=== PATIENT | male | born 1960 | race Two or more races ===

== ENCOUNTER 2017-02-15 22:59 | Emergency (ER) | payer MEDICAID ==
[2017-02-16] MEDS ORDERED: KETOROLAC 60 MG/2 ML VIAL IM STA (00:02)
[2017-02-16] MEDS ORDERED: KETOROLAC 60 MG/2 ML VIAL ONE (00:05)
== END 2017-02-16 02:08 | disposition home or self-care (01) ==
DX: S16.1XXA Strain of muscle, fascia and tendon at neck level, initial encounter (principal); S20.212A Contusion of left front wall of thorax, initial encounter; S39.012A Strain of muscle, fascia and tendon of lower back, initial encounter; V53.5XXA Driver of pick-up truck or van injured in collision with car, pick-up truck or van in traffic accident, initial encounter; Y92.411 Interstate highway as the place of occurrence of the external cause; F17.200 Nicotine dependence, unspecified, uncomplicated

== ENCOUNTER 2017-11-09 13:41 | Outpatient (CLI) | payer MEDICAID | END 2017-11-09 13:42 | disposition critical access hospital (66) | LOC: EMS 13:41 | PROVIDERS: ATTEND Surgery | DX: R07.9 Chest pain, unspecified (principal); M54.9 Dorsalgia, unspecified | CPT/HCPCS: A0425; A0429 ==

== ENCOUNTER 2017-11-09 13:54 | Emergency (ER) | payer MEDICAID ==
[2017-11-09] MEDS ORDERED: HYDROcod/ACETAM 5/325 MG TABLET PO STA (14:16)
[2017-11-09 15:13] LABS: BASOPHILS % (AUTO) 0.3 %; EOSINOPHILS % (AUTO) 0.7 %; HGB - HEMOGLOBIN 14.7 g/dL (14.0-18.0); LYMPHOCYTES # (AUTO) 1.2 10^3/uL (1.5-3.5); LYMPHOCYTES % (AUTO) 17.1 %; MEAN CORPUSCULAR HGB CONC 34.9 g/dL (32.0-36.0); MEAN CORPUSCULAR VOLUME 91.6 fL (80.0-94.0); MEAN PLATELET VOLUME 6.7 fL (7.4-11.4); MONOCYTES # (AUTO) 0.5 10^3/uL (0.0-1.0); MONOCYTES % (AUTO) 7.5 %; NEUTROPHILS # (AUTO) 5.4 10^3/uL (1.5-6.6); NEUTROPHILS % (AUTO) 74.4 %; PLT - PLATELET COUNT 263 10^3/uL (130-450); WHITE BLOOD COUNT 7.2 x10^3/uL (4.8-10.8)
[2017-11-09 15:26] LABS: ALBUMIN 3.9 g/dL (3.2-5.5); ALBUMIN/GLOBULIN RATIO 1.1 (1.0-2.2); BILIRUBIN,TOTAL 0.8 mg/dL (0.2-1.0); CALCIUM 9.1 mg/dL (8.5-10.3); CREATININE 0.9 mg/dL (0.6-1.2); TOTAL PROTEIN 7.3 g/dL (6.7-8.2)
--- NOTE | 2017-11-09 15:44 | XRAY Report ---
EXAM: CHEST RADIOGRAPHY EXAM DATE: 11/09/2017 03:19 PM. CLINICAL HISTORY: Chest pain . COMPARISON: 02/16/2017. TECHNIQUE: 2 views. FINDINGS: Lungs/Pleura: No focal opacities evident. No pleural effusion. No pneumothorax. Normal volumes. Mediastinum: Heart and mediastinal contours are unremarkable. Other: None. IMPRESSION: No acute intrathoracic plain film abnormality. [facility] Referring Provider Line: [phone] SITE ID: [id number]
--- NOTE | 2017-11-09 15:50 | ED Physician Documentation ---
History of Present Illness - Stated complaint Stated Complaint: CP - Chief complaint Chief Complaint: Cardiac - History obtained from History obtained from: Patient (pt is here for evaluation of chest pain. pt staes that the other day he tripped and fell and has had back pain. and pt report that this morning he was sitting at the table and had chest pain that was worse with breathing, coughing, moving his arms and touching his chest. he states that the pain was so bad he had to go to his knees. he staes that the pain is still there.) Review of Systems Constitutional: denies: Fever, Chills Throat: denies: Oral lesions / sores, Sore throat Cardiac: reports: Chest pain / pressure. denies: Palpitations, Pedal edema Respiratory: reports: Cough. denies: Dyspnea GI: denies: Abdominal Pain, Nausea, Vomiting, Constipation, Diarrhea : denies: Dysuria Skin: denies: Rash Musculoskeletal: reports: Neck pain. denies: Back pain, Extremity pain, Joint pain Neurologic: denies: Generalized weakness PD PAST MEDICAL HISTORY - Past Medical History Past Medical History: Yes Cardiovascular: Murmur - Past Surgical History Past Surgical History: Yes - Present Medications Home Medications: Ambulatory Orders Medication Instructions Recorded Confirmed No Known Home Medications [No 11/09/17 11/09/17 Known Home Medications] - Allergies Allergies/Adverse Reactions: Allergies Allergy/AdvReac Type Severity Reaction Status Date / Time No Known Drug Allergies Allergy Verified 02/15/17 23:20 - Social History Does the pt smoke?: Yes Smoking Status: Current every day smoker Does the pt drink ETOH?: Yes Does the pt have substance abuse?: Yes - Immunizations Immunizations are current?: No - POLST Patient has POLST: No PD ED PE NORMAL - Vitals Vital signs reviewed: Yes - General General: Alert and oriented X 3, No acute distress, Well developed/nourished - Cardiac Cardiac: RRR, No murmur, No gallop, No rub, Other (patient with tenderness to palpation over the sternum with palpation and with movement of his arms. he staes that this is the pain that brought him in. ) - Respiratory Respiratory: No respiratory distress, Clear bilaterally - Abdomen Abdomen: Soft - Back Back: No CVA TTP - Derm Derm: Normal color, Warm and dry, No rash - Extremities Extremities: No deformity - Neuro Neuro: Alert and oriented X 3 Eye Opening: Spontaneous Motor: Obeys Commands Verbal: Oriented GCS Score: 15 - Psych Psych: Normal mood, Normal affect Results - Vitals Vitals: Vital Signs - 24 hr 11/09/17 11/09/17 13:59 14:41 Temperature 36.0 C L Heart Rate 82 101 H Respiratory 15 16 Rate Blood Pressure 115/72 122/79 O2 Saturation 98 97 Oxygen O2 Source Room air - EKG (time done) 1358 Rate: Rate (enter#) Rhythm: NSR [place]: Normal Intervals: QRS normal QRS: Normal Ischemia: Normal ST segments - Labs Labs: Laboratory Tests 11/09/17 11/09/17 11/09/17 14:58 14:58 14:58 WBC 7.2 RBC 4.60 L Hgb 14.7 Hct 42.1 MCV 91.6 MCH 32.0 H MCHC 34.9 RDW 13.0 Plt Count 263 MPV 6.7 L Neut # 5.4 Lymph # 1.2 L [place] # 0.5 Eos # 0.0 Baso # 0.0 Absolute Nucleated RBC 0.00 Nucleated RBC % 0.1 Sodium 135 Potassium 4.1 Chloride 99 L Carbon Dioxide 26 Anion Gap 10.0 BUN 20 Creatinine 0.9 Estimated GFR (MDRD) 87 L Glucose 94 Calcium 9.1 Total Bilirubin 0.8 AST 26 ALT 23 Alkaline Phosphatase 54 Troponin I < 0.04 Total Protein 7.3 Albumin 3.9 Globulin 3.4 Albumin/Globulin Ratio 1.1 Lipase 25 - Rads (name of study) CXR Radiology: Final report received (no acute changes), EMP read contemporaneously PD MEDICAL DECISION MAKING - ED course Complexity details: considered differential, d/w patient ED course: pt with pain that is reproduced with palpation. he states that this is the pain that brought him in. ECG unremarkable. I doubt ACS secondary to his history and physical. Pt is asking to go home and states that he is feeling better. hx and PE not C/W PNA. no indication for ABX. pt was given return precautions. Departure - Departure Disposition: Home, Self Care Clinical Impression: Chest wall pain Condition: Good Instructions: ED Contusion Chest Wall, ED Chest Pain Atypical Unkn Cause Follow-Up: primary, care provider [Other] Comments: Follow up with your primary care provider. Return to the ER for any new symptoms, worsening pain, problems breathing or any other concerning symptoms.
[2017-11-09 16:03] VITALS: BP 110/63
== END 2017-11-09 16:08 | disposition home or self-care (01) ==
LOC: EDUNIT# → ED 13:54
DX: R07.89 Other chest pain (principal); F17.200 Nicotine dependence, unspecified, uncomplicated
CPT/HCPCS: 36415; 71046; 80053; 83690; 84484; 85025; 93005; 99283; 99284; A9270

== ENCOUNTER 2018-10-04 13:19 | Day surgery (SDC) | payer MEDICAID ==
[~2018-10-04 13:19] MED LIST: LACTATED RINGERS 1,000 ML IV ONE
--- NOTE | 2018-10-04 14:44 | ANESTHESIA ---
Pre-Anesthesia VS, & Labs - Diagnosis screening colonoscopy - Procedure colonoscopy Vital Signs: Temp Pulse Resp BP Pulse Ox 36.6 C 92 18 118/83 H 97 10/04/18 13:28 10/04/18 13:28 10/04/18 13:28 10/04/18 13:28 10/04/18 13:28 Height 5 ft 4 in Weight (kg) 72.8 kg Body Mass Index 27.4 - NPO >8 hours Home Medications and Allergies Home Medications: Ambulatory Orders Cyclobenzaprine HCl 10 mg PO ONCE 10/04/18 HYDROcod/ACETAM 5/325 [[place] 5/325] 1 - 2 ea PO Q6H PRN 10/04/18 Ibuprofen 800 mg PO 1-2XD 10/04/18 Omeprazole Magnesium [Acid Prescription Clerk] 20 mg PO DAILY 10/04/18 Cyclobenzaprine HCl 10 mg PO ONCE 10/04/18 HYDROcod/ACETAM 5/325 [[place] 5/325] 1 - 2 ea PO Q6H PRN 10/04/18 Ibuprofen 800 mg PO 1-2XD 10/04/18 Omeprazole Magnesium [Acid Prescription Clerk] 20 mg PO DAILY 10/04/18 Allergies/Adverse Reactions: Allergies Allergy/AdvReac Type Severity Reaction Status Date / Time No Known Drug Allergies Allergy Verified 02/15/17 23:20 Anes History & Medical History - Anesthetic History Anesthesia Complications: reports: No previous complications - Medical History Cardiovascular: reports: None Pulmonary: reports: None Gastrointestinal: reports: GERD Urinary: reports: Incontinence Musculoskeletal: reports: Osteoarthritis, Chronic back pain, Other Endocrine/Autoimmune: reports: None Skin: reports: Other Smoking Status: Current every day smoker Exam General: Alert Dental: Poor dentition Mouth Opening: Greater than 4 Fingerbreadths Mallampati classification: II Thyromental Distance: greater than 6 cm Respiratory: Lungs clear Cardiovascular: Regular rate Mental/Cognitive Status: Alert/Oriented X3 Plan Anesthesia Type: MAC Consent for Procedure(s) Verified and Reviewed: No Code Status: Attempt Resuscitation ASA classification: 2-Mild systemic disease Is this case an emergency?: No
[2018-10-04] MEDS ORDERED: PROPOFOL 200 MG/20 ML VIAL IVP ONE (15:30)
[2018-10-04] MEDS ORDERED: LIDOCAINE-MPF 2% 5 ML VIAL IM ONE (15:30)
[2018-10-04 16:05] VITALS: BP 135/92
== END 2018-10-04 13:20 | disposition home or self-care (01) ==
LOC: SDS 13:19
PROVIDERS: ATTEND Internal Medicine
PROC: 0DJD8ZZ Inspection of Lower Intestinal Tract, Via Natural or Artificial Opening Endoscopic (ICD-10-PCS; principal; 2018-10-04 14:30)
DX: Z12.11 Encounter for screening for malignant neoplasm of colon (principal); G89.29 Other chronic pain; M54.9 Dorsalgia, unspecified; M19.90 Unspecified osteoarthritis, unspecified site; K21.9 Gastro-esophageal reflux disease without esophagitis; R32 Unspecified urinary incontinence; F17.200 Nicotine dependence, unspecified, uncomplicated; Z79.891 Long term (current) use of opiate analgesic; Z79.1 Long term (current) use of non-steroidal anti-inflammatories (NSAID)
CPT/HCPCS: 45378; J7120